=== PATIENT | male | born 1960 | race Caucasian/White ===

== ENCOUNTER 2019-06-05 17:54 | Outpatient (CLI) | payer OTHER, SELFPAY ==
--- NOTE | 2019-06-05 | XR_ITS ---
WS: [id number] CHEST 2 VIEWS HISTORY: COUGH, SHORTNESS OF BREATH COMPARISON: 2008 Lungs: Lung volumes are markedly decreased. Crowding of the markings would likely improved with milan r inspiration. No pulmonary congestion or pneumonia. No pleural effusion. Cardiac size: Normal. Mediastinum/Aorta: Normal mediastinum. Bones: Increase in thoracic kyphosis with spondylosis. Prior remote RIGHT mid clavicle fracture. XR/XR chest 2V* [id number] IMPRESSION: 1. Limited evaluation due to poor inspiration. 2. No pneumonia. With better inspiration I believe the interstitial thickening in the lower lung bardales would improved.
== END 2019-06-05 17:55 | disposition home or self-care (01) ==
LOC: RADOUTREAD 06-06 10:30
PROVIDERS: Family Provider Family Medicine; PCP Family Medicine; Visit Provider Nurse Practitioner Family
DX: Z76.89 Persons encountering health services in other specified circumstances (principal)

== ENCOUNTER 2019-08-15 08:06 | Outpatient (CLI) | payer OTHER, SELFPAY ==
--- NOTE | 2019-08-15 08:14 | CT_ITS ---
WS: [id number] CT CHEST TECHNIQUE: Contrast enhanced CT of the chest with coronal and sagittal reformatted images. CLINICAL INFORMATION: RESTRICTIVE LUNG DISEASE COMPARISON: CT December 15, 2008 DLP: 1072.[address] scans at [facility] use at least one of these dose optimization techniques: automat ed exposure control; mA and/or kV adjustment per patient size (includes targeted exams where dose is matched to clinical indication); or iterative reconstruction. FINDINGS: Both lungs are well aerated. No acute pulmonary infiltrates. No consolidation or pleural fluid. No Focal pneumonia. A few calcified granulomas. No suspicious pulmonary parenchymal opacities. Normal caliber thoracic ao rta. Vascular calcification including coronary. Calcified hilar nodes. Calcified subcarinal lymph nod es. Small esophageal hiatal hernia. Mild pancreatic atrophy. Adrenal glands are normal. Suspicious solid enhancing right upper pole renal lesion consistent with neoplasm measuring 2.7 x 2.7 CM. Kidneys are only partially evaluated. Recommend further evaluation with ultrasound and evaluatio n of the abdomen pelvis with CT. CT/CT chest w con* [id number] IMPRESSION: 1. Peripheral enhancing solid lesion upper pole right kidney consistent with n eoplasm measuring 2.7 x 2.7CM. Recommend further evaluation with ultrasound. 2. In addition, recommend evaluation of the abdomen and pelvis with CT. 3. Lungs are well aerated. No suspicious pulmonary parenchymal abnormalities. No acute pulmonary infiltrates. 4. No mediastinal or hilar lymphadenopathy. 5. Chronic granulomas disease. 6. Vascular calcification including coronary.
[2019-08-15] MEDS: iohexol 300 mg/mL 100 mL Btl IV (09:04)
== END 2019-08-15 08:07 | disposition home or self-care (01) ==
LOC: RADWPI 08:09
PROVIDERS: Family Provider Family Medicine; PCP Family Medicine; Visit Provider Physician Assistant
DX: J98.4 Other disorders of lung (principal); R91.1 Solitary pulmonary nodule; D71 Functional disorders of polymorphonuclear neutrophils; I25.10 Atherosclerotic heart disease of native coronary artery without angina pectoris
CPT/HCPCS: 71260; Q9967

== ENCOUNTER 2019-09-12 12:44 | Outpatient (CLI) | payer OTHER, SELFPAY ==
--- NOTE | 2019-09-12 | US_ITS ---
WS: [id number] RENAL ULTRASOUND ULTRASOUND URINARY BLADDER. HISTORY: RENAL MASS COMPARISON: 08/15/2019 TECHNIQUE: 2-D and color Doppler imaging of the kidney submitted. Right kidney: 11.5 cm x 5.9 cm x 6.5 cm. Normal size kidney. No hydronephrosis. Solid mass exophytic from the upper pole measures 3.2 x 2.9 x 3.5 cm and corresponds to the mass described on recent PET/CT. There is mild increased vascularity. Left kidney: 13.5 cm x 5.3 cm x 6.0 cm. Normal echogenicity. No hydronephrosis. Cortical cyst lower pole measures 2.4 x 2.2 x 2.4 cm. Aorta: Normal. Urinary Bladder: Urinary bladder is nondistended. US/US renal BI* [id number] IMPRESSION: 1. Solid mass upper pole RIGHT kidney measures 3.2 x 2.9 x 3.5 cm. Suspicious for renal cell neoplasm. 2. Cyst lower pole LEFT kidney.
== END 2019-09-12 12:45 | disposition home or self-care (01) ==
LOC: RAD 12:48
PROVIDERS: PCP Family Medicine; Visit Provider Family Medicine
DX: N28.89 Other specified disorders of kidney and ureter (principal); N28.1 Cyst of kidney, acquired
CPT/HCPCS: 76770

== ENCOUNTER 2019-09-13 07:46 | Outpatient (CLI) | payer OTHER, SELFPAY ==
--- NOTE | 2019-09-13 07:51 | CT_ITS ---
WS: [id number] CT ABDOMEN AND PELVIS WITH AND WITHOUT CONTRAST HISTORY: RENAL MASS TECHNIQUE: Unenhanced 5 mm axial imaging first performed through the abdomen. Post contrast imaging t hrough the abdomen and pelvis. Oral contrast has not been provided. Sagittal and coronal reformats a re submitted. All CT scans at [facility] use at least one of these dose optimization tech niques: automated exposure control; mA and/or kV adjustment per patient size (includes targeted exams where dose is matched to clinical indication); or iterative reconstruction. CONTRAST: Omnipaque 300; 95 mL IV. DLP: 5280.04 mGy.cm COMPARISON: 12/15/2018. Renal ultrasound 09/12/2019 Benign granuloma LEFT lower lobe. Cardiac chambers are very slightly enlarged. Small hiatal hernia. Liver, gallbladder, pancreas, spleen and adrenal glands are negative. RIGHT kidney: Solid enhancing mass with cystic component in the superior lateral RIGHT kidney measure s 2.7 x 2.9 x 2.4 cm. Mass is partially exophytic and bulging from the contour of the kidney. Mass do es enhance and corresponds to the recently described mass by ultrasound. No additional masses. No brendon al obstruction. Renal vein is normal size. LEFT kidney: Nonenhancing exophytic cyst from the lower pole of the LEFT kidney with a maximum diamet er of 1.8 cm. There is an additional nonobstructing 3 mm calcification in the mid kidney. No obstruct ion. Mild atherosclerosis aorta with no aneurysm. No free fluid or adenopathy. Moderate constipation. Normal appendix. There are a few scattered diverticula in the sigmoid colon wi thout acute diverticulitis. Urinary bladder is well distended. Prostate gland is slightly enlarged and heterogeneous. Mild degenerative changes throughout the visualized thoracic and lumbar spines. No osteoblastic or os teolytic bone disease. There is a component of central stenosis in the lumbar spine and foraminal brie nosis at L3-4 and to a lesser extent L2-3 and L4-5. CT/CT abdomen pelvis wo/w [id number] IMPRESSION: 1. Solid mass upper pole RIGHT kidney measures 2.7 x 2.9 x 2.4 cm most consist ent with a renal cell carcinoma. 2. No adenopathy or ascites or bone lesions. 3. Simple cyst lower pole LEFT kidney with a maximum diameter of 1.8 cm. 4. Negative urinary bladder with mild prostate gland enlargement.
[2019-09-13] MEDS: iohexol 300 mg/mL 100 mL Btl IV (08:22)
== END 2019-09-13 07:47 | disposition home or self-care (01) ==
LOC: RAD 07:48
PROVIDERS: PCP Family Medicine; Visit Provider Family Medicine
DX: N28.89 Other specified disorders of kidney and ureter (principal); Q61.01 Congenital single renal cyst
CPT/HCPCS: 74178

== ENCOUNTER 2019-09-19 12:00 | Outpatient (CLI) | payer OTHER, SELFPAY | END 2019-09-19 20:01 | disposition home or self-care (01) | LOC: SLEEP 10-01 13:45 | PROVIDERS: PCP Family Medicine; Visit Provider Family Medicine | DX: G47.33 Obstructive sleep apnea (adult) (pediatric) (principal) | CPT/HCPCS: G0399 ==

== ENCOUNTER 2019-09-21 07:58 | Outpatient (CLI) | payer OTHER, SELFPAY ==
--- NOTE | 2019-09-21 13:21 | PFTS_ITS ---
Date of Study:09/21/19 Date of Dictation: MECHANICS: Forced vital capacity (FVC) is reduced. Forced expiratory volume in one second (FEV1) is reduced. FEV1/FVC is normal. FLOW VOLUME LOOP: Normal. LUNG VOLUMES: Not performed DIFFUSING CAPACITY FOR CARBON MONOXIDE: Normal. INTERPRETATION: The pulmonary function tests are consistent with moderate restriction likely secondary to obesity. The presence of intact inspiratory capacity and reduced expiratory reserve volume and normal gas exchange is suggestive of that. Gas exchange (DLCO) is normal. MTDD
== END 2019-09-21 07:59 | disposition home or self-care (01) ==
LOC: RT 08:01
PROVIDERS: PCP Family Medicine; Visit Provider Internal Medicine Critical Care Medicine
DX: R06.02 Shortness of breath (principal)
CPT/HCPCS: 94010; 94729

== ENCOUNTER 2019-09-27 07:10 | Outpatient (CLI) | payer OTHER, SELFPAY ==
--- NOTE | 2019-09-27 07:40 | ECG_ITS ---
NAME OF STUDY: LEXISCAN SESTAMIBI STRESS TEST INDICATION: Chest Pain, NOTE: Please note that this is the electrocardiogram portion of the Lexiscan/Sestamibi stress test. The perfusion scan will be documented separately. DATA: Baseline heart rate was 66 beats per minute. Baseline blood pressure was 156/89 millimeters of mercury. Target heart rate was 160. Maximum heart rate achieved was 87. which was 54 % of the predicted target heart rate. Maximum blood pressure was 159/92 millimeters of mercury. The reason for ending the test was completion of the protocol. The patient did not experience any symptoms. ELECTROCARDIOGRAM: BASELINE: Sinus rhythm. Normal axis. Right bundle branch block EXERCISE: After Lexiscan injection, no ST-T changes more than what is present at the baseline was noted. CONCLUSION: Please note due to baseline abnormality of the EKG specificity and sensitivity of the EKG portion of LexiScan MIBI stress test will be low 1. EKG not suggestive of ischemia 2. Lexiscan injection unremarkable. 3. Perfusion scan will be documented separately. Electronically Signed On 09-29-2019 13:50:15 CDT by Francisca Lincoln M.D. [email or web address]
--- NOTE | 2019-09-27 07:40 | NMCV_ITS ---
NM nella perf SPECT r/s* [id number] Flash Hdez Age: 59 Gender: M : 1960 Exam Date: 09/27/2019 08:25 Ordering Phys: Aime Arredondo MD Technologist: PANCHO Bryson Exam Location: [facility] Indications: SOB STRESS TEST Please see separate stress test report in [facility] for full findings IMAGE PROTOCOL Rest/Stress 1 Lexiscan Day Radiopharmaceutical Dose (mCi) Administration Site Administered by Rest: Tc-99m 11.0 IV PANCHO Bryson Sestamibi Stress:Tc-99m 33.0 IV PANCHO Altamirano Sestamibi Rest: 27-Sep-2019 60 Discovery 630 Stress: 27-Sep-2019 30 Discovery 630 0.4mg Lexiscan. Images obtained in supine and prone position. SPECT RESULTS Technical Quality: Excellent Raw Data Analysis: Normal Image Corrections: No attenuation or motion correction applied Summed Stress Score: 14 Summed Rest Score: 13 Summed Difference Score: 1 PERFUSION FINDINGS Large area of fixed perfusion defect noted in mid to distal inferior, inferoseptal and inferolateral wall suggestive of old myocardial infarction versus scarring. Small area of fixed perfusion defect noted in mid anteroseptal wall suggestive of old myocardial infarction versus scarring. FUNCTIONAL RESULTS (calculated via Gated SPECT) Stress Image LV EF (%): 30 Stress EDV (mL):244 TID: 1.04 Stress ESV (mL):172 Rest Image LV EF (%): 30 FUNCTIONAL FINDINGS: Inferior and apical wall akinesis. Mid anteroseptal wall hypokinesis IMPRESSIONS Large area of old myocardial infarction versus scarring noted in basal to distal inferior inferoseptal and inferolateral wall without nathan-infarct ischemia. Medium-sized area of old myocardial infarction versus scarring noted in mid anteroseptal wall without nathan-infarct ischemia. This study is negative for ischemia. EKG segment will be documented separately. Francisca Lincoln MD (Electronically Signed) Final Date: 27 September 2019 12:34 S
[2019-09-27 07:41] VITALS: BMI 34.7
[2019-09-27] MEDS: regadenoson 0.4 Mg/5 ml Syringe IVP (09:44)
[2019-09-27 09:45] VITALS: BP 142/86; PULSE 80
== END 2019-09-27 07:11 | disposition home or self-care (01) ==
PROVIDERS: PCP Family Medicine; Visit Provider Internal Medicine Critical Care Medicine
DX: R06.02 Shortness of breath (principal)
CPT/HCPCS: 78452; 93017; A9500; J2785

== ENCOUNTER 2019-10-01 14:27 | Outpatient (CLI) | payer OTHER, SELFPAY ==
--- NOTE | 2019-10-01 15:00 | USCV_ITS ---
LemuelFlash cabral Age: 59 Gender: M : 1960 Exam Date: 10/01/2019 14:46 Ordering Phys: Aime Arredondo MD Technologist: Malena Steiner Exam Location: [facility] [place] Indication: Heart failure BP: / HR: 87 Rhythm: Sinus Technical Quality: Technically difficult study MEASUREMENTS (Male / Female) Normal Values 2D ECHO LV Diastolic Diameter PLAX 6.0 cm 4.2 - 5.9 / 3.9 - 5.3 cm LV Systolic Diameter PLAX 3.7 cm LV Chamber Size 4.8 cm IVS Diastolic Thickness 1.6 cm 0.6 - 1.0 / 0.6 - 0.9 cm IVS Systolic Thickness 2.1 cm LVPW Diastolic Thickness 1.6 cm 0.6 - 1.0 / 0.6 - 0.9 cm LVPW Systolic Thickness 2.3 cm RV Chamber Size 4.3 cm LVOT Diameter 2.1 cm LV Ejection Fraction 2D Teich 67.3 % LV Ejection Fraction MOD 2C 45.5 % LV Ejection Fraction 2C AL 47.2 % LA Diameter 5.7 cm LA Width 3.3 cm LA Height 5.0 cm RA Width 4.2 cm RA Height 5.0 cm Aorta at Sinotubular Diameter 3.5 cm M-MODE LV Diastolic Diameter MM 6.0 cm 4.2 - 5.9 / 3.9 - 5.3 cm LV Systolic Diameter MM 4.1 cm LV Ejection Fraction MM Teich 60.2 % IVS Diastolic Thickness MM 1.8 cm 0.6 - 1.0 / 0.6 - 0.9 cm IVS Systolic Thickness MM 2.1 cm LVPW Diastolic Thickness MM 1.8 cm 0.6 - 1.0 / 0.6 - 0.9 cm LVPW Systolic Thickness MM 2.3 cm RV Diastolic Diameter MM 2.4 cm Aortic Annulus Diameter 4.2 cm LA Ao Ratio MM 1.3 MV E Point Septal Separation 1.2 cm DOPPLER AV Peak Velocity 137.0 cm/s LVOT Peak Velocity 80.0 cm/s AV Area Cont Eq vti 2.6 cm squared AV Area Cont Eq pk 2.0 cm squared MV Area PHT 7.9 cm squared Mitral E to A Ratio 1.0 MV E' Velocity 11.0 cm/s Mitral E to MV E' Ratio 9.9 Mitral E to LV E' Lateral Ratio 9.3 Mitral E to LV E' Septal Ratio 10.6 TR Peak Velocity 132.2 cm/s TR Peak Gradient 7.0 mmHg TR Mean Velocity 94.8 cm/s TR Mean Gradient 3.9 mmHg TR Velocity Time Integral 31.2 cm TV Peak E Velocity 86.0 cm/s PV Peak Velocity 58.0 cm/s RV Acceleration Time 0.2 s RV Ejection Time 0.4 s RV AcT/ET 0.4 FINDINGS Left Ventricle Mildly dilated left ventricle. Probably moderately decreased left ventricular systolic function with ejection fraction estimated at 40%. This study is inadequate for estimation of regional wall motion abnormality. Abnormal septal motion consistent with conduction abnormality. Normal diastolic function. Right Ventricle Right ventricle not well visualized. Normal right ventricular systolic pressure. Right Atrium Normal right atrial size. Left Atrium Left atrium not well visualized. Normal left atrial size. Mitral Valve Mildly thickened mitral valve. Trace mitral valve regurgitation. Aortic Valve Trileaflet aortic valve. No aortic valve stenosis. Mild aortic valve regurgitation. Tricuspid Valve Structurally normal tricuspid valve. Trace tricuspid valve regurgitation. Pulmonic Valve Pulmonic valve not well visualized. No pulmonary valve stenosis. Pericardium No pericardial effusion. Aorta Normal size aortic root and proximal ascending aorta. CONCLUSIONS 1. Mildly dilated left ventricle. Probably moderately decreased left ventricular systolic function with ejection fraction estimated at 40%. This study is inadequate for estimation of regional wall motion abnormality. Normal diastolic function. 2. Mild aortic valve regurgitation. 3. Repeat study with ultrasound enhancing agent is recommended. 4. No prior similar studies to compare. Angela Freeman MD (Electronically Signed) Final Date: 02 October 2019 18:12 S
== END 2019-10-01 14:28 | disposition home or self-care (01) ==
LOC: US 14:28
PROVIDERS: PCP Family Medicine; Visit Provider Internal Medicine Critical Care Medicine
DX: I50.9 Heart failure, unspecified (principal); I35.1 Nonrheumatic aortic (valve) insufficiency
CPT/HCPCS: 93306

== ENCOUNTER 2019-10-25 07:11 | Outpatient (CLI) | payer OTHER, SELFPAY ==
--- NOTE | 2019-10-25 08:06 | USCV_ITS ---
Flash Hdez Age: 59 Gender: M : 1960 Exam Date: 10/25/2019 08:18 Ordering Phys: Arturo Bai DO Technologist: Lacey Beltrán [place] [facility] [place]: carotid bruit Risk Factors: Unknown Previous Vascular Surgery: None Right Brachial BP: / Left Brachial BP: / Right Left Velocity (cm/s) Spectral Plaque Velocity (cm/s) Spectral Plaque Syst/Diast Broadening Syst/Diast Broadening 44.30/ 12.80 Prox CCA 42.10 / 11.80 39.50/ 16.00 Mid CCA 30.90 / 9.90 34.70/ 13.90 Hetro Distal CCA 23.50 / 8.10 591.30/317.90 Hetro Prox ICA / 389.60/222.20 Hetro Mid ICA / 92.00/ 42.10 Distal ICA / 136.70 Hetro ECA 154.70 13.34 ICA/CCA Antegrade Vertebral Antegrade 19.80/ 3.50 cm/s 44.30/ 7.00 cm/s Tri Subclavian Tri 111.4 94.00 0 FINDINGS Comparison: none available. Severe obstructive lesions noted in the right internal carotid artery estimated at 70-99% stenosis. Complete chronic appearing occlusion left ICA. Moderate diffuse atherosclerosis. left CCA. CONCLUSIONS Right ICA stenosis 70-99%. Complete occlusion left ICA. Report called at time of exam. Dr. Alyssa Suggs DO (Electronically Signed) Final Date: 25 October 2019 12:14 S
== END 2019-10-25 07:12 | disposition home or self-care (01) ==
PROVIDERS: PCP Family Medicine; Visit Provider Family Medicine
DX: R09.89 Other specified symptoms and signs involving the circulatory and respiratory systems (principal); I65.23 Occlusion and stenosis of bilateral carotid arteries
CPT/HCPCS: 93880

== ENCOUNTER 2019-11-08 08:38 | Outpatient (CLI) | payer OTHER, SELFPAY ==
--- NOTE | 2019-11-08 09:00 | CT_ITS ---
WS: [id number] CTA NECK TECHNIQUE: Contrast enhanced CTA of the neck with coronal and sagittal reformatted images and maximum intensity projection (MIP) images. NASCET criteria utilized. CLINICAL INFORMATION: carotid stenosis COMPARISON: Ultrasound carotid October 25, 2019 DLP: 643.[address] scans at [facility] use at least one of these dose optimization techniques: automat ed exposure control; mA and/or kV adjustment per patient size (includes targeted exams where dose is matched to clinical indication); or iterative reconstruction. FINDINGS: RIGHT: Right ICA stenosis 80-90 %. Densely calcified atheromatous disease right carotid bulb extendin g into the ICA with high-grade stenosis right proximal ICA measuring approximately 80-90% with a tiny residual string-like lumen. Right ICA is patent to the skull base with normal caliber. LEFT: Left ICA is occluded at the origin and remains occluded to the skull base. Moderate cavernous c arotid calcification. Left ECA is patent. Right dominant vertebral artery. Smaller left vertebral artery which ends in the posterior inferior c erebellar artery. Proximal basilar artery is patent. Normal vascularity to the RAIL [employer]IST territory bilatera lly. Hypoplastic left A1. Normal vascularity to the EVAN and MCA territories. Patent anterior communic ating artery. Mastoid air cells are well aerated. Paranasal sinuses are well aerated. Normal posterior nasopharynx. CT/CT angio neck [id number] IMPRESSION: 1. High-grade right proximal ICA stenosis measuring 80-90% with a tiny residua l lumen. Normal caliber ICA is patent to the skull base. 2. Left proximal ICA is occluded at the origin and remains occluded to the sku ll base 3. Unremarkable proximal [place]. 4. Right dominant vertebral artery.
[2019-11-08 10:07] LABS: Blood Urea Nitrogen 18 mg/dL (8-23); Glomerular Filtration Rate 68.3 mL/min (90-130)
[2019-11-08] MEDS: iohexol 350 mg/mL 100 mL Btl IV (10:14)
== END 2019-11-08 08:39 | disposition home or self-care (01) ==
PROVIDERS: Family Provider Family Medicine; PCP Family Medicine; Visit Provider Thoracic Surgery (Cardiothoracic Vascular Surgery)
DX: I65.23 Occlusion and stenosis of bilateral carotid arteries (principal)
CPT/HCPCS: 70498; 82565; 84520; Q9967

== ENCOUNTER → 2019-11-20 15:39 | Outpatient (BNVA) | payer OTHER, SELFPAY | PROVIDERS: Family Provider Family Medicine; PCP Family Medicine; Visit Provider Urology | DX: N28.89 Other specified disorders of kidney and ureter (principal); I65.29 Occlusion and stenosis of unspecified carotid artery; I50.9 Heart failure, unspecified | CPT/HCPCS: 81001 ==

== ENCOUNTER 2022-05-18 07:36 | Emergency (ER) | payer OTHER, SELFPAY ==
[2022-05-18 07:38] VITALS: BP 158/99; PULSE 74; RESP 16; TEMP 36.4; O2SAT 95; BMI 36.3
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
[2022-05-18 07:47] VITALS: BP 158/99; O2SAT 94
[2022-05-18 08:31] VITALS: BP 151/81; PULSE 74; O2SAT 97
--- NOTE | 2022-05-18 08:33 | PC.NURSE ---
lung sounds clear throughout bilateral, bowel sounds present x4
== END 2022-05-18 08:34 | disposition home or self-care (01) ==
PROVIDERS: Emergency Provider Physician Assistant; PCP Family Medicine
DX: S00.03XA Contusion of scalp, initial encounter (principal); Z79.82 Long term (current) use of aspirin; F17.210 Nicotine dependence, cigarettes, uncomplicated; I25.10 Atherosclerotic heart disease of native coronary artery without angina pectoris; I10 Essential (primary) hypertension; E78.5 Hyperlipidemia, unspecified; I25.2 Old myocardial infarction; V89.2XXA Person injured in unspecified motor-vehicle accident, traffic, initial encounter
CPT/HCPCS: 70450; 72125; 99284